=== PATIENT | male | born 1960 | race Caucasian/White ===

== ENCOUNTER 2017-06-26 10:59 | Outpatient (CLI) | payer OTHER, MEDICARE ==
[~2017-06-26 10:59] MED LIST: CYCL-10 PO; DOCU-144 PO; FAMO40TA7 PO; IMI50 PO; MORP15TA60 PO; OXYC-133 PO; POLY17PO4 PO; TRAZ-123 PO
== END 2017-06-26 19:25 | disposition home or self-care (01) ==
LOC: SRD 10:59
PROVIDERS: ATTEND Family Medicine
DX: M19.012 Primary osteoarthritis, left shoulder (principal); M47.896 Other spondylosis, lumbar region; Z98.890 Other specified postprocedural states; Z98.1 Arthrodesis status
CPT/HCPCS: 72110; 73010-TC; 73030

== ENCOUNTER 2018-01-30 05:21 | Emergency (ER) | payer OTHER, MEDICARE ==
[~2018-01-30] VITALS: Ht 172.7 cm; Wt 93.4 kg
[2018-01-30 05:27] VITALS: BP_SYST 144
[2018-01-30] MEDS ORDERED: fentaNYL CITRATE/PF 100 MCG/2 ML AMP IM ONE (06:00)
[2018-01-30 08:10] VITALS: BP_SYST 144
== END 2018-01-30 08:10 | disposition home or self-care (01) ==
LOC: MERGE 05:21 → SED 05:21
DX: G89.29 Other chronic pain (principal); M54.5 Low back pain
CPT/HCPCS: 96372; 99283; J3010

== ENCOUNTER 2018-03-01 09:18 | Outpatient (CLI) | payer OTHER, MEDICARE | END 2018-03-01 20:13 | disposition home or self-care (01) | LOC: SRD 09:18 | PROVIDERS: ATTEND Family Medicine | DX: M17.11 Unilateral primary osteoarthritis, right knee (principal); M81.0 Age-related osteoporosis without current pathological fracture | CPT/HCPCS: 73564 ==

== ENCOUNTER 2018-05-14 07:19 | Inpatient (IN) | payer OTHER, MEDICARE ==
[~2018-05-14] VITALS: Ht 172.7 cm; Wt 88.0 kg
[~2018-05-14 07:19] MED LIST changes: +GABA-531 PO; +LEVO25TA7 PO; +LORA-258 PO
[2018-05-14] MEDS ORDERED: CELECOXIB 200 MG CAPSULE PO ONE (07:30)
[2018-05-14] MEDS ORDERED: CEFAZOLIN 2 GM IVPB PREMIX 50 ML IV ONE (07:30)
[2018-05-14] MEDS ORDERED: ACETAMINOPHEN 500 MG TABLET PO ONE (07:30)
[2018-05-14] MEDS ORDERED: GABAPENTIN 300 MG CAPSULE PO ONE (07:30)
[2018-05-14] MEDS ORDERED: oxyCODONE HCL 10 MG TAB.ER.12H PO ONE ×2 (07:30→07:37)
[2018-05-14] MEDS ORDERED: TRANEXAMIC ACID 650 MG TABLET PO ONE (07:30)
[2018-05-14] MEDS ORDERED: NACL 0.9% 1,000 ML IV ONE (07:30)
[2018-05-14] MEDS ORDERED: ACETAMINOPHEN 500 MG TABLET ONE (07:36)
[2018-05-14] MEDS ORDERED: CELECOXIB 200 MG CAPSULE ONE (07:37)
[2018-05-14] MEDS ORDERED: TRANEXAMIC ACID 650 MG TABLET ONE (07:38)
[2018-05-14] MEDS ORDERED: GABAPENTIN 300 MG CAPSULE ONE (07:38)
[2018-05-14] MEDS ORDERED: POLYMYXIN 500,000/BACIT.10,000 UNITS in NS IRR 1 L IR ONE (07:42)
[2018-05-14] MEDS ORDERED: FAMO-132 PO (07:59)
[2018-05-14] MEDS ORDERED: ROPIVACAINE 0.2% 550 ML INJ SCH ×2 (08:41→11:03)
[2018-05-14] MEDS ORDERED: OXYCODONE/ACETAMINOPHEN *10*mg/325 mg TABLET PO PRN (08:45)
[2018-05-14] MEDS ORDERED: fentaNYL CITRATE/PF 100 MCG/2 ML AMP IVP PRN ×2 (08:45)
[2018-05-14] MEDS ORDERED: DIPHENHYDRAMINE INJ 50 MG/ML VIAL IVP PRN (08:45)
[2018-05-14] MEDS ORDERED: KETOROLAC TROMETHAMINE 30 MG VIAL IVP PRN ×2 (08:45→11:15)
[2018-05-14] MEDS ORDERED: ONDANSETRON HCL 4 MG/2 ML VIAL IVP PRN ×3 (08:45→11:15)
[2018-05-14] MEDS ORDERED: NALBUPHINE HCL 10 MG/ML AMP IVP PRN (08:45)
[2018-05-14] MEDS ORDERED: MORPHINE SULFATE 10MG/10ML PF AMP ONE (11:15)
[2018-05-14] MEDS ORDERED: PROPOFOL 200MG/ 20ML VIAL (DIPRIVAN) IV ONE (11:15)
[2018-05-14] MEDS ORDERED: ONDANSETRON HCL 4 MG/2 ML VIAL ONE (11:15)
[2018-05-14] MEDS ORDERED: fentaNYL CITRATE 250 MCG/5 ML AMP ONE (11:15)
[2018-05-14] MEDS ORDERED: NS 50 ML BAG IV ONE (11:15)
[2018-05-14] MEDS ORDERED: LR 1,000 ML IV.SOLN IV ONE (11:15)
[2018-05-14] MEDS ORDERED: DIPHENHYDRAMINE HCL 25 MG CAPSULE PO PRN (11:15)
[2018-05-14] MEDS ORDERED: PROMETHAZINE HCL 25 MG/ML AMP IVP PRN (11:15)
[2018-05-14] MEDS ORDERED: SEVOFLURANE 15 MIN GAS INH ONE (11:15)
[2018-05-14] MEDS ORDERED: MIDAZOLAM HCL 5 MG/ML VIAL (VERSED) IV ONE (11:15)
[2018-05-14] MEDS ORDERED: KETOROLAC TROMETHAMINE 30 MG VIAL ONE (11:15)
[2018-05-14] MEDS ORDERED: ROPIVACAINE HCL/PF 5 MG/ML 0.5% 30 ML VIAL ONE (11:15)
[2018-05-14] MEDS ORDERED: SENNOSIDES 8.6 MG TABLET PO PRN (11:15)
[2018-05-14] MEDS ORDERED: TRANEXAMIC ACID 1,000 MG/10 ML VIAL IV ONE (11:15)
[2018-05-14] MEDS ORDERED: EPINEPHrine 1 MG/ML AMP ONE (11:15)
[2018-05-14] MEDS ORDERED: VANCOMYCIN HCL 1000 MG/VIAL IV ONE (11:15)
[2018-05-14] MEDS ORDERED: SUMAtriptan SUCCINATE 50 MG TABLET PO SCH (11:15)
[2018-05-14] MEDS ORDERED: ROPIVACAINE 0.2% (NAROPIN) PF SOLUTION 100 ML BOTTLE ONE (11:15)
[2018-05-14] MEDS ORDERED: fentaNYL CITRATE/PF 100 MCG/2 ML AMP ONE (11:32)
[2018-05-14] MEDS ORDERED: LABETALOL 100 MG/ 20ML VIAL ONE (11:58)
[2018-05-14] MEDS ORDERED: LABETALOL 100 MG/ 20ML VIAL IVP ONE ×2 (12:00→13:00)
[2018-05-14] MEDS ORDERED: hydrALAZINE HCL 20 MG/ML VIAL ONE (12:25)
[2018-05-14 12:40] VITALS: BP_SYST 158
[2018-05-14] MEDS: CEFAZOLIN 1 GM IVPB PREMIX 50 ML IV SCH ×2 (12:48→20:48)
[2018-05-14 12:57] VITALS: BP_SYST 158
[2018-05-14] MEDS: MORPHINE 4 MG/ML INJ. SYRINGE IVP PRN (13:00)
[2018-05-14] MEDS: KETOROLAC TROMETHAMINE 15 MG VIAL IVP PRN (13:34)
[2018-05-14 13:44] VITALS: BP_SYST 143
[2018-05-14] MEDS: GABAPENTIN 300 MG CAPSULE PO SCH ×3 (14:59→20:54)
[2018-05-14] MEDS: oxyCODONE HCL 5 MG TABLET PO PRN ×3 (14:59→23:49)
[2018-05-14] MEDS: ACETAMINOPHEN 500 MG TABLET PO SCH ×2 (15:00→20:53)
[2018-05-14 15:02] VITALS: BP_SYST 148
[2018-05-14] MEDS ORDERED: RIVAROXABAN 10 MG TABLET PO ONE (17:00)
[2018-05-14 20:00] VITALS: BP_SYST 147
[2018-05-14] MEDS: D5LR 1,000 ML IV SCH ×2 (20:47→21:03)
[2018-05-14] MEDS: FAMOTIDINE 20 MG TABLET PO SCH (20:50)
[2018-05-14] MEDS: CELECOXIB 200 MG CAPSULE PO SCH (20:51)
[2018-05-14] MEDS: DOCUSATE SODIUM 100 MG CAPSULE PO SCH (20:51)
[2018-05-14] MEDS: CYCLOBENZAPRINE HCL 10 MG TABLET (FLEXERIL) PO SCH (20:51)
[2018-05-14] MEDS: traZODone HCL 50 MG TABLET (DESYREL) PO SCH (20:52)
[2018-05-15 01:31] VITALS: BP_SYST 142
[2018-05-15] MEDS: CEFAZOLIN 1 GM IVPB PREMIX 50 ML IV SCH (04:05)
[2018-05-15 06:44] LABS: BASOPHILS # (AUTO) 0.1 K/uL (0.0-0.2); BASOPHILS % (AUTO) 0.4 % (0.0-2.0); EOSINOPHILS % (AUTO) 0.3 % (0.0-4.0); HEMATOCRIT 31.4 % (36-54); HEMOGLOBIN 10.8 g/dL (14.0-18.0); LYMPHOCYTES # (AUTO) 2.3 K/uL (1.0-5.5); LYMPHOCYTES % (AUTO) 17.9 % (20.5-51.5); MEAN CORPUSCULAR HEMOGLOBIN 30 pg (27-31); MEAN CORPUSCULAR HGB CONC 34 % (32-36); MEAN CORPUSCULAR VOLUME 87 fL (79.0-98.0); MONOCYTES # (AUTO) 1.3 K/uL (0.0-1.0); MONOCYTES % (AUTO) 10.4 % (1.7-9.3); NEUTROPHILS # (AUTO) 8.9 K/uL (1.8-7.7); PLATELET COUNT (AUTO) 191 K/uL (130-430); RED BLOOD CELL COUNT(AUTO) 3.59 MIL/uL (4.2-6.2); RED CELL DISTRIBUTION WIDTH 12.4 % (9.0-15.0); WHITE BLOOD COUNT (AUTO) 12.6 K/uL (4.8-10.8)
[2018-05-15 06:46] LABS: CALCIUM 8.2 mg/dL (8.4-11.0); CREATININE 0.86 mg/dL (0.55-1.30); POTASSIUM 3.5 mmol/L (3.5-5.1)
[2018-05-15] MEDS: D5LR 1,000 ML IV SCH (07:03)
[2018-05-15] MEDS: oxyCODONE HCL 5 MG TABLET PO PRN (07:28)
[2018-05-15 08:00] VITALS: BP_SYST 136
[2018-05-15] MEDS: MORPHINE 4 MG/ML INJ. SYRINGE IVP PRN ×3 (09:15→20:03)
[2018-05-15] MEDS: FAMOTIDINE 20 MG TABLET PO SCH ×3 (09:24→21:34)
[2018-05-15] MEDS: LEVOTHYROXINE SODIUM 0.025 MG TABLET PO SCH ×2 (09:24→10:12)
[2018-05-15] MEDS: LORazepam 1 MG TABLET PO SCH (10:11)
[2018-05-15] MEDS: CELECOXIB 200 MG CAPSULE PO SCH ×2 (10:11→20:39)
[2018-05-15] MEDS: RIVAROXABAN 10 MG TABLET PO SCH (10:12)
[2018-05-15] MEDS: ACETAMINOPHEN 500 MG TABLET PO SCH ×3 (10:12→20:41)
[2018-05-15] MEDS: POLYETHYLENE GLYCOL 3350, 17 GM/ POWD.PACK PO SCH (10:13)
[2018-05-15] MEDS: DOCUSATE SODIUM 100 MG CAPSULE PO SCH ×2 (10:13→20:39)
[2018-05-15] MEDS: GABAPENTIN 300 MG CAPSULE PO SCH ×4 (10:25→20:49)
[2018-05-15 12:00] VITALS: BP_SYST 140
[2018-05-15] MEDS: KETOROLAC TROMETHAMINE 15 MG VIAL IVP PRN (13:59)
[2018-05-15 17:03] VITALS: BP_SYST 159
[2018-05-15 20:00] VITALS: BP_SYST 149
[2018-05-15] MEDS: CYCLOBENZAPRINE HCL 10 MG TABLET (FLEXERIL) PO SCH (20:39)
[2018-05-15] MEDS: traZODone HCL 50 MG TABLET (DESYREL) PO SCH (20:42)
[2018-05-16] MEDS: MORPHINE 4 MG/ML INJ. SYRINGE IVP PRN ×3 (00:32→11:24)
[2018-05-16 01:18] VITALS: BP_SYST 149
[2018-05-16 05:39] VITALS: BP_SYST 147
[2018-05-16 06:43] LABS: CALCIUM 8.5 mg/dL (8.4-11.0); CREATININE 0.66 mg/dL (0.55-1.30); POTASSIUM 3.5 mmol/L (3.5-5.1)
[2018-05-16 06:49] LABS: BASOPHILS % (AUTO) 0.4 % (0.0-2.0); EOSINOPHILS # (AUTO) 0.1 K/uL (0.0-0.4); EOSINOPHILS % (AUTO) 1.3 % (0.0-4.0); HEMATOCRIT 30.1 % (36-54); HEMOGLOBIN 10.2 g/dL (14.0-18.0); LYMPHOCYTES # (AUTO) 2.1 K/uL (1.0-5.5); LYMPHOCYTES % (AUTO) 20.6 % (20.5-51.5); MEAN CORPUSCULAR HEMOGLOBIN 30 pg (27-31); MEAN CORPUSCULAR HGB CONC 34 % (32-36); MEAN CORPUSCULAR VOLUME 88 fL (79.0-98.0); MONOCYTES # (AUTO) 0.7 K/uL (0.0-1.0); MONOCYTES % (AUTO) 7.3 % (1.7-9.3); NEUTROPHILS # (AUTO) 7.3 K/uL (1.8-7.7); NEUTROPHILS % (AUTO) 70.4 % (40.0-70.0); PLATELET COUNT (AUTO) 164 K/uL (130-430); RED BLOOD CELL COUNT(AUTO) 3.44 MIL/uL (4.2-6.2); RED CELL DISTRIBUTION WIDTH 12.6 % (9.0-15.0); WHITE BLOOD COUNT (AUTO) 10.2 K/uL (4.8-10.8)
[2018-05-16 07:44] VITALS: BP_SYST 147
[2018-05-16] MEDS: CELECOXIB 200 MG CAPSULE PO SCH (08:09)
[2018-05-16] MEDS: GABAPENTIN 300 MG CAPSULE PO SCH (08:12)
[2018-05-16] MEDS: DOCUSATE SODIUM 100 MG CAPSULE PO SCH (08:12)
[2018-05-16] MEDS: LORazepam 1 MG TABLET PO SCH (08:13)
[2018-05-16] MEDS: POLYETHYLENE GLYCOL 3350, 17 GM/ POWD.PACK PO SCH (09:00)
[2018-05-16] MEDS: RIVAROXABAN 10 MG TABLET PO SCH (11:30)
[2018-05-16 12:00] VITALS: BP_SYST 150
[2018-05-16 12:39] VITALS: BP_SYST 147
== END 2018-05-16 13:18 | DRG 470 ==
LOC: SMU 07:19 → STU 12:35
PROVIDERS: ADMIT Orthopaedic Surgery; ATTEND Orthopaedic Surgery
PROC: 0SRC0J9 Replacement of Right Knee Joint with Synthetic Substitute, Cemented, Open Approach (ICD-10-PCS; principal; 2018-05-14 08:30)
DX: M17.11 Unilateral primary osteoarthritis, right knee (principal); G89.29 Other chronic pain; M54.9 Dorsalgia, unspecified; Z87.891 Personal history of nicotine dependence
CPT/HCPCS: 36415; 80048; 85025; 87081; 88304; 88305; 88311; 90656; 94010; 97039; 97110-GP; 97116-GP; 97530-GP; C1713; C1776; J0171; J0360; J0690; J1885; J2250; J2270; J2274; J2405; J2704; J2795; J3010; J3370; J3490; J7120

== ENCOUNTER 2019-09-20 16:34 | Emergency (ER) | payer BC ==
[~2019-09-20] VITALS: Ht 172.7 cm; Wt 90.7 kg
[~2019-09-20 16:34] MED LIST changes: +FAMO-132 PO; -TRAZ-123 PO; +TRAZ-250 PO
[2019-09-20 16:57] VITALS: BP_SYST 149
--- NOTE | 2019-09-20 16:57 | NUR ---
Patient to ER bed 3 to gown for evaluation. Side rails up. Report given to Drew QUAN.
--- NOTE | 2019-09-20 17:05 | NUR ---
PT CAME TO ER FOR LOW BACK PAIN 02/23. RESTING IN [facility] AWAITING MD AT THIS TIME. PT IN WAITING ROOM.
--- NOTE | 2019-09-20 17:10 | NUR ---
LISA Eaton at bedside examining patient.
[2019-09-20] MEDS ORDERED: CYCLOBENZAPRINE HCL 10 MG TABLET (FLEXERIL) PO ONE (17:15)
[2019-09-20] MEDS ORDERED: KETOROLAC TROMETHAMINE 60 MG/2 ML VIAL IM ONE (17:15)
--- NOTE | 2019-09-20 18:00 | NUR ---
PT TOLERATING PAIN MEDICATIONS WELL, WILL CONTINUE TO MONITOR.
[2019-09-20] MEDS ORDERED: PREDNISONE 20 MG TABLET PO ONE (18:15)
[2019-09-20 18:40] VITALS: BP_SYST 146
--- NOTE | 2019-09-20 18:40 | NUR ---
Patient given written and verbal discharge instructions and verbalizes understanding. ER MD discussed with patient the results and treatment provided. Patient in stable condition. ID arm band removed. Rx of FLEXERIL AND PREDNISONE given. Patient educated on pain management and to follow up with PMD. Pain Scale 3. Opportunity for questions provided and answered. Medication side effect fact sheet provided.
== END 2019-09-20 18:40 | disposition home or self-care (01) ==
LOC: SED 16:34
DX: G89.29 Other chronic pain (principal); M54.5 Low back pain; E07.9 Disorder of thyroid, unspecified; F41.9 Anxiety disorder, unspecified; Z79.899 Other long term (current) drug therapy
CPT/HCPCS: 96372; 99283; J1885; J7512

== ENCOUNTER 2020-03-26 10:59 | Emergency (ER) | payer BC, OTHER ==
[~2020-03-26] VITALS: Ht 172.7 cm; Wt 88.5 kg
[2020-03-26 11:00] VITALS: BP_SYST 150
[2020-03-26 11:32] VITALS: BP_SYST 150
[2020-03-26] MEDS: KETOROLAC TROMETHAMINE 60 MG/2 ML VIAL IM ONE (11:42)
[2020-03-26] MEDS: MORPHINE 4 MG/ML INJ. SYRINGE IM ONE (11:42)
== END 2020-03-26 12:00 | disposition home or self-care (01) ==
LOC: SED 10:59
DX: M54.42 Lumbago with sciatica, left side (principal); R03.0 Elevated blood-pressure reading, without diagnosis of hypertension; E03.9 Hypothyroidism, unspecified; F41.9 Anxiety disorder, unspecified; Z79.899 Other long term (current) drug therapy
CPT/HCPCS: 96372; 99284; J1885; J2270